=== PATIENT | female | born 1990 | race Caucasian/White ===

== ENCOUNTER 2019-10-24 21:35 | Emergency (ER) | payer SELFPAY ==
--- NOTE | ~2019-10-24 | XR_ITS ---
EXAMINATION: XR chest 2V DATE: 10/24/2019 22:11 INDICATION: Shortness of breath and mid chest tightness TECHNIQUE: frontal and lateral views of the chest were obtained. COMPARISON: Chest radiograph dated 10/10/1989 FINDINGS: The lungs remain clear with no focal airspace opacities, pulmonary edema, pleural effusion or pneumot horax. The cardiomediastinal silhouette is normal. Visualized bones and soft tissues are unremarkable . IMPRESSION: 1. No acute cardiopulmonary disease. Reviewed, dictated and finalized at location A. MOTIVE MANAGER
[2019-10-24 21:43] VITALS: BP 121/76; PULSE 108; RESP 18; TEMP 38.1; O2SAT 100
--- NOTE | 2019-10-24 21:53 | PC.NURSE ---
Pt ambulatory to restroom with a steady gait.
--- NOTE | 2019-10-24 21:55 | PC.NURSE ---
Patient C/O cough, fever, body aches, and chest tightness that started today. Pt reports her aunt was diagnosed with influenza A a few days ago and she has been around her all week.
--- NOTE | 2019-10-24 22:02 | ECG_ITS ---
Measurements Intervals [place] Rate: 114 P: 62 NM: 122 QRS: 51 QRSD: 87 T: 38 QT: 317 QTc: 438 Interpretive Statements SINUS TACHYCARDIA ABNORMAL ECG Electronically Signed On 10-25-2019 6:57:32 [employer] by Venkat Sams D.O.
--- NOTE | 2019-10-24 22:05 | ED.URI ---
HPI - URI/Sore Throat General Chief Complaint: Upper Respiratory Infection Stated Complaint: Body aches, cough Time Seen by Provider: 10/24/19 21:42 Source: patient Mode of arrival: ambulatory Limitations: no limitations History of Present Illness HPI Narrative: This is a 28 year old female that presents to the ER for cold symptoms since this morning. Reports myalgia, fever, cough, and sore throat. Reports tightness in her chest that is worse with coughing. Denies shortness of breath. Related Data Allergies Allergy/AdvReac Type Severity Reaction Status Date / Time Penicillins Allergy Unknown HIVES Verified 12/26/17 16:13 Review of Systems Review of Systems: Narrative: CONSTITUTIONAL: Reports fever, chills ENT: Reports rhinorrhea, congestion, sore throat. Denies otalgia. CARDIOVASCULAR: Reports chest pain. Denies palpitations RESPIRATORY: Reports cough. Denies dyspnea. MUSCULOSKELETAL: Reports myalgia. NEUROLOGIC: Reports headache All systems reviewed & are unremarkable except as noted in HPI and below PMFSH Past Medical History Medical History (Updated 10/24/19 @ 22:39 by Radha Shay PA-C) Healthy adult Social History Social History (Updated 10/24/19 @ 22:08 by Radha Shay PA-C) Smoking status: Current every day smoker Tobacco type: e-cigarettes Gender identity (if verbalized by the patient): Female Exam Narrative: Exam Narrative: GENERAL: Well-appearing, well-nourished, and in no acute distress. HEAD: Normocephalic, atraumatic. EYES: EOMI. ENT: Turbinates swollen and pale. Mucous membranes moist. Oropharynx with mild tonsillar hypertrophy, no exudate or other lesions. Bilateral TMs pearly bhatia non-bulging NECK: Supple. No adenopathy or masses. CHEST: Clear to auscultation. No respiratory distress. No wheezes rales or rhonchi. Tender palpation of mid chest wall anteriorly HEART: Regular rate and rhythm. No murmur heard. Normal peripheral pulses. EXTREMITIES: Normal range of motion. No edema. SKIN: Warm, dry, no rash. NEURO: No focal deficits. Alert and oriented x3. PSYCH: Normal mood and affect Course Vital Signs Vital signs: Vital Signs Temperature 100.6 F H 10/24/19 21:43 Pulse Rate 108 H 10/24/19 21:43 Respiratory Rate 18 10/24/19 21:43 Blood Pressure 121/76 10/24/19 21:43 Pulse Oximetry 100 10/24/19 21:43 Temperature 100.6 F H 10/24/19 21:43 Pulse Rate 108 H 10/24/19 21:43 Respiratory Rate 18 10/24/19 21:43 Blood Pressure 121/76 10/24/19 21:43 Pulse Oximetry 100 10/24/19 21:43 MDM - URI/Sore Throat MDM Narrative Medical decision making narrative: Patient presents the emergency department for cold symptoms since this morning. Reports fever, myalgias, cough and sore throat. Patient reports some chest pain that is reproducible with palpation. Influenza is negative. CBC with mild leukocytosis to 11.5. Metabolic panel without acute changes. Troponin is not elevated. EKG and chest x-ray without acute changes. Symptoms are suspicious for influenza, but patient is otherwise healthy and not so treatment is not indicated in her. Patient was instructed on [id number] symptomatic care. She is to follow-up with primary care doctor. She was given warnings to return to the ER Lab Data Attestation: I reviewed the patient's lab results. Result diagrams: 10/24/19 22:23 10/24/19 22:23 Labs: Lab Results 10/24/19 10/24/19 Range/Units 22:23 22:23 WBC 11.5 H (4.5-10.0) K/mm3 RBC 3.97 L (4.2-5.4) M/mm3 Hgb 12.4 (12.0-15.0) g/dL Hct 37.4 (37.0-47.0) % MCV 94.2 (80-100) fl MCH 31.2 (26-34) pg MCHC 33.2 (32-36) g/dl RDW 13.5 (11.5-14.5) % Plt Count 400 H (150-375) k/mm3 MPV 9.7 (7.4-10.4) fl Immature Gran % (Auto) 0.3 (0-0.5) % Neut % (Auto) 73.6 H (45.5-73.1) % Lymph % (Auto) 14.8 L (18.3-44.2) % [place] % (Auto) 9.9 H (2.6-8.5) % Eos % (Auto) 1.2 (0-4.4) % Baso
[2019-10-24] MEDS: KETOROLAC (*BKC) 60 MG/2 ML VIAL IM (22:22)
[2019-10-24 22:28] LABS: Basophils Percent Auto 0.2 % (0.2-1.2); Eosinophils Absolute Auto 0.1 K/mm3 (0-0.3); Eosinophils Percent Auto 1.2 % (0-4.4); Hematocrit 37.4 % (37.0-47.0); Hemoglobin 12.4 g/dL (12.0-15.0); Immature Granulocyte Absolute 0.03 K/mm3 (0.00-0.031); Immature Granulocyte Percent A 0.3 % (0-0.5); Lymphocytes Percent Auto 14.8 % (18.3-44.2); Mean Corpuscular HGB Conc 33.2 g/dl (32-36); Mean Corpuscular Hemoglobin 31.2 pg (26-34); Mean Corpuscular Volume 94.2 fl (80-100); Mean Platelet Volume 9.7 fl (7.4-10.4); Monocytes Absolute Auto 1.1 K/mm3 (0.1-0.6); Monocytes Percent Auto 9.9 % (2.6-8.5); Neutrophils Absolute Auto 8.4 K/mm3 (1.3-6.7); Neutrophils Percent Auto 73.6 % (45.5-73.1); Platelet Count Result 400 k/mm3 (150-375); Red Blood Count 3.97 M/mm3 (4.2-5.4); Red Cell Distribution Width 13.5 % (11.5-14.5); White Blood Count 11.5 K/mm3 (4.5-10.0)
[2019-10-24 22:40] LABS: Blood Urea Nitrogen 10 mg/dL (7-17); Calcium 9.5 mg/dL (8.4-10.2); Carbon Dioxide 27 mmol/L (22-30); Chloride 100 mmol/L (98-107); Estimated CRCL calculation 94 ml/min; Estimated Glomerular Filt Rate > 60; Glucose 98 mg/dL (65-105); Potassium 3.8 mmol/L (3.4-5.0); Sodium 138 mmol/L (137-145)
[2019-10-24 22:52] LABS: Troponin I < 0.012 ng/mL (0.000-0.034)
[2019-10-24 22:53] VITALS: BP 97/69; PULSE 103; RESP 16; TEMP 36.7; O2SAT 98
== END 2019-10-24 23:14 | disposition home or self-care (01) ==
PROVIDERS: Physician Assistant; Emergency Provider Emergency Medicine
DX: B34.9 Viral infection, unspecified (principal); R00.0 Tachycardia, unspecified; F17.290 Nicotine dependence, other tobacco product, uncomplicated
CPT/HCPCS: 36415; 71046; 80048; 84484; 85025; 87804; 93005; 96372; 99284; J1885

== ENCOUNTER 2019-11-27 17:23 | Emergency (ER) | payer OTHER, SELFPAY ==
[2019-11-27 17:27] VITALS: BP 110/72; PULSE 98; RESP 16; TEMP 36.8; O2SAT 100
--- NOTE | 2019-11-27 18:04 | ED.URI ---
HPI - URI/Sore Throat General Chief Complaint: Upper Respiratory Infection Stated Complaint: COUGH/STREP EXPOSURE Time Seen by Provider: 11/27/19 17:57 Source: patient and RN notes reviewed Mode of arrival: ambulatory Limitations: no limitations History of Present Illness HPI Narrative: Patient presents today complaining of sore throat, congestion, rhinorrhea, bilateral ear pain, and occasional cough. Symptoms began last night. Denies fever, nausea, vomiting, diarrhea. She currently rates her pain 1/10 at rest and has been taking Tylenol and NyQuil without relief. Reports child was diagnosed with strep throat today. MD elicited complaint: sore throat Related Data Allergies Allergy/AdvReac Type Severity Reaction Status Date / Time Penicillins Allergy Unknown Other Verified 11/27/19 17:33 Review of Systems Review of Systems: Narrative: CONSTITUTIONAL: Denies body aches, fever, chills, or sweats. EYES: Denies visual changes, redness, or discharge. ENT: + Sore throat, bilateral ear pain, congestion, rhinorrhea. CARDIOVASCULAR: Denies chest pain, palpitations, or edema. RESPIRATORY: Denies dyspnea.+ Occasional cough GASTROINTESTINAL: Denies abdominal pain, nausea, vomiting, or diarrhea. GENITOURINARY: Denies dysuria or hematuria. SKIN: Denies rash, itching, or wounds. MUSCULOSKELETAL: Denies back pain, joint pain, or myalgia. NEUROLOGIC: Denies headache, numbness, tingling, or weakness. PSYCH: Denies depression or anxiety. PMFSH Comments At time of signature, I have reviewed and agree with nursing past medical, surgical, social and family history unless otherwise noted. Please see nursing chart for further information. There is no relevant family history pertinent to the presenting complaint Patient denies that she smokes or vapes, but an e-cigarette is seen in her pocket during exam. Exam Narrative: Exam Narrative: GENERAL: Well-appearing, well-nourished, and in no acute distress. HEAD: Normocephalic, atraumatic. EYES: EOMI. No redness or drainage. Conjunctivae normal. ENT: Mucous membranes pink and moist. Nares clear. No rhinorrhea. TMs normal bilaterally. Throat erythematous. Tonsils 3+ with white exudate. Uvula midline. NECK: Normal AROM. Supple. No lymphadenopathy. CHEST: No respiratory distress. Clear to auscultation. HEART: Regular rate and rhythm. No murmur appreciated. Normal peripheral pulses. EXTREMITIES: Normal range of motion. No edema. SKIN: Warm, dry, no rash. NEURO: No focal deficits. Alert and oriented x3. Gait steady. PSYCH: Normal affect. No signs of depression or anxiety. Course Vital Signs Vital signs: Vital Signs Temperature 98.3 F 11/27/19 17:27 Pulse Rate 98 11/27/19 17:27 Respiratory Rate 16 11/27/19 17:27 Blood Pressure 110/72 11/27/19 17:27 Pulse Oximetry 100 11/27/19 17:27 Temperature 98.3 F 11/27/19 17:27 Pulse Rate 98 11/27/19 17:27 Respiratory Rate 16 11/27/19 17:27 Blood Pressure 110/72 11/27/19 17:27 Pulse Oximetry 100 11/27/19 17:27 Reviewed MDM - URI/Sore Throat Differential Diagnosis Differential diagnosis: Likely upper respiratory infection, otitis media, viral infection, bronchitis, pharyngitis and other (Tonsillitis, strep throat) Lab Data Attestation: I reviewed the patient's lab results. Labs: Strep Screen Positive Group A Strep *(Reference Range: Negative)* Critical Care Time Critical Care Time Critical Care Time: No Discharge Plan Discharge Clinical Impression: Strep throat Patient Disposition: Home, Self-Care Condition: Stable Instructions: Antibiotic Form, Strep Throat (DC) Additional Instructions: You have been diagnosed with strep throat. Please take the azithromycin as prescribed until gone. You will be contagious for 48 hours after starting the antibiotics. Take Tylenol, ibuprofen, or Aleve for pain. Take an [id number] cough medicine such as Robitussin or Sabina
== END 2019-11-27 18:15 | disposition home or self-care (01) ==
PROVIDERS: Emergency Provider Nurse Practitioner
DX: J02.0 Streptococcal pharyngitis (principal)
CPT/HCPCS: 87880; 99213; G0463

== ENCOUNTER 2020-02-25 17:25 | Emergency (ER) | payer OTHER, SELFPAY ==
[2020-02-25] VITALS (8 sets, daily range): BP systolic 97–114; BP diastolic 62–77; PULSE 76–98; RESP 15–18; TEMP 36.9; O2SAT 98–100
--- NOTE | 2020-02-25 17:54 | ECG_ITS ---
Measurements Intervals [place] Rate: 73 P: 62 MI: 132 QRS: 62 QRSD: 97 T: 55 QT: 362 QTc: 400 Interpretive Statements SINUS RHYTHM WITH SINUS ARRHYTHMIA POSSIBLE LEFT ATRIAL ENLARGEMENT INCOMPLETE RIGHT BUNDLE BRANCH BLOCK BORDERLINE ECG Electronically Signed On 02-26-2020 7:03:15 CDT by Venkat Sams D.O.
[2020-02-25 18:15] LABS: Basophils Percent Auto 0.2 % (0.2-1.2); Eosinophils Absolute Auto 0.2 K/mm3 (0-0.3); Eosinophils Percent Auto 1.8 % (0-4.4); Hematocrit 37.9 % (37.0-47.0); Immature Granulocyte Absolute 0.02 K/mm3 (0.00-0.031); Immature Granulocyte Percent A 0.2 % (0-0.5); Lymphocytes Absolute Auto 3.13 K/mm3 (0.9-3.2); Lymphocytes Percent Auto 28.8 % (18.3-44.2); Mean Corpuscular HGB Conc 34.3 g/dl (32-36); Mean Corpuscular Hemoglobin 31.6 pg (26-34); Monocytes Absolute Auto 0.9 K/mm3 (0.1-0.6); Monocytes Percent Auto 7.9 % (2.6-8.5); Neutrophils Absolute Auto 6.6 K/mm3 (1.3-6.7); Neutrophils Percent Auto 61.1 % (45.5-73.1); Platelet Count Result 325 k/mm3 (150-375); Red Blood Count 4.12 M/mm3 (4.2-5.4); White Blood Count 10.9 K/mm3 (4.5-10.0)
[2020-02-25 18:18] LABS: Add Urine Microscopic? YES; Appearance Urine Clear (Clear); Bacteria Urine Trace /hpf; Bilirubin Urine Negative (Negative); Blood Urine Negative (Negative); Color Urine Straw (Yellow); Glucose Urine UA Negative (Negative); Ketones Urine Negative (Negative); Leukocyte Esterase Ur Trace LEU/UL (Negative); Mucus Urine Rare /lpf; Nitrate Urine Negative (Negative); Protein Urine Negative (Negative); RBC Urine 0-2 /hpf (0-2); Specific Grav Ur 1.011 (1.001-1.035); Squamous Epithelial Cell Urine Moderate /hpf (Few); Urobilinogen Urine Negative mg/dL (<2.0); WBC Urine 0-3 /hpf
[2020-02-25] MEDS: SODIUM CHLORIDE 0.9% IV 1,000 ML 999 ML IV CONT (18:26)
[2020-02-25] MEDS: FAMOTIDINE 20 MG/2 ML VIAL IV PUSH (18:27)
[2020-02-25 18:28] LABS: Blood Urea Nitrogen 12 mg/dL (7-17); Calcium 9.4 mg/dL (8.4-10.2); Carbon Dioxide 27 mmol/L (22-30); Chloride 103 mmol/L (98-107); Estimated CRCL calculation 81 ml/min; Estimated Glomerular Filt Rate > 60; Glucose 104 mg/dL (65-105); Potassium 3.6 mmol/L (3.4-5.0); Sodium 137 mmol/L (137-145)
--- NOTE | 2020-02-25 18:35 | ED.GENADULT ---
HPI - General Adult General Chief complaint: Syncope Stated complaint: LIGHT HEADED, 2 SYNCOPE EPISODES THIS WEEKEND Time Seen by Provider: 02/25/20 18:00 Source: patient Mode of arrival: ambulatory Limitations: no limitations History of Present Illness HPI narrative: Patient is a 29-year-old female who presents to emergency department for evaluation of 2 syncopal episodes that were brief and self-limited noting that she had one on Tuesday after paddling on a [place] for an hour and then again yesterday when she had been again out in the heat and then came inside and cool down and again had a brief syncopal episode patient denies any injury or traumas related to the syncope patient denies similar occurrence in the past patient on arrival to emergency department in the room in no distress denying any pain patient has not been seen for this complaint patient denies recent illness sick contacts Related Data Allergies Allergy/AdvReac Type Severity Reaction Status Date / Time Penicillins Allergy Unknown Other Verified 02/25/20 17:47 Review of Systems Review of Systems: All systems reviewed & are unremarkable except as noted in HPI and below PMFSH Past Medical History Medical History Healthy adult Social History Social History Smoking status: Current every day smoker Tobacco type: e-cigarettes/vaping Gender identity (if verbalized by the patient): Female Exam Narrative: Exam Narrative: GENERAL: Well-appearing, well-nourished, and in no acute distress. HEAD: Normocephalic, atraumatic. EYES: PERRLA and EOMI. ENT: Nares clear, no rhinorrhea or epistaxis. Mucous membranes moist. Oropharynx without tonsillar hypertrophy exudate or other lesions. NECK: Supple. No adenopathy or masses. CHEST: Clear to auscultation. No respiratory distress. No wheezes rales or rhonchi HEART: Regular rate and rhythm. No murmur heard. Normal peripheral pulses. ABDOMEN: Soft, nontender, nondistended EXTREMITIES: Normal range of motion. No edema. SKIN: Warm, dry, no rash. NEURO: No focal deficits. Alert and oriented x3. Cranial nerves II through XII grossly intact PSYCH: Normal mood and affect. Course Course Emergency Course: Patient in the room at this time in no distress aware of case findings treatment plan and diagnosis agreeing to follow-up as directed or to return if symptoms worsen or concerns Vital Signs Vital signs: Vital Signs Temperature 98.5 F 02/25/20 17:45 Pulse Rate 86 02/25/20 17:45 Respiratory Rate 16 02/25/20 17:45 Blood Pressure 106/66 02/25/20 17:45 Pulse Oximetry 100 02/25/20 17:45 Temperature 98.5 F 02/25/20 17:45 Pulse Rate 76 02/25/20 18:50 Respiratory Rate 18 02/25/20 18:50 Blood Pressure 97/65 L 02/25/20 18:50 Pulse Oximetry 98 02/25/20 18:50 Medical Decision Making MDM Narrative Medical decision making narrative: Patients EKGs and labs are without significant high risk changes. Cardiac risk factors were reviewed. Patient is felt likely to be low risk for ACS and reasonable for further risk stratification testing as an outpatient. A low-risk Wells criteria is noted. PE is felt to be unlikely. No pneumonia or URI symptoms were seen on evaluation today. Patient is felt to be resonable for continued evaluation as an outpatient. Vital Signs Vital Signs: Vital Signs Temperature 98.5 F 02/25/20 17:45 Pulse Rate 86 02/25/20 17:45 Respiratory Rate 16 02/25/20 17:45 Blood Pressure 106/66 02/25/20 17:45 Pulse Oximetry 100 02/25/20 17:45 Temperature 98.5 F 02/25/20 17:45 Pulse Rate 76 02/25/20 18:50 Respiratory Rate 18 02/25/20 18:50 Blood Pressure 97/65 L 02/25/20 18:50 Pulse Oximetry 98 02/25/20 18:50 Lab Data Result diagrams: 02/25/20 18:05 02/25/20 18:05 Labs: Lab Results 02/25/20 02/25/20
== END 2020-02-25 20:13 | disposition home or self-care (01) ==
PROVIDERS: Emergency Medicine Emergency Medical Services; Emergency Provider Emergency Medicine
DX: R55 Syncope and collapse (principal); F17.290 Nicotine dependence, other tobacco product, uncomplicated; I45.10 Unspecified right bundle-branch block; R94.31 Abnormal electrocardiogram [ECG] [EKG]
CPT/HCPCS: 36415; 80048; 81001; 81025; 85025; 93005; 96361; 96374; 99284; J7030

== ENCOUNTER 2020-04-15 16:54 | Emergency (ER) | payer OTHER, SELFPAY ==
--- NOTE | 2020-04-15 17:01 | ED.GENADULT ---
HPI - General Adult General Chief complaint: Upper Respiratory Infection Stated complaint: sore throat Source: patient and RN notes reviewed Mode of arrival: ambulatory Limitations: no limitations History of Present Illness HPI narrative: This is a 29 years old female presents to the office for an evaluation of sore throat for two days. Associated with runny nose and dental pain. She states that one of her filling came off last night and she has been having pain. She does not have a dentist. Denies sick contact. Related Data Home Medications Medication Instructions Recorded Confirmed cetirizine 10 mg tablet 10 mg PO DAILY 03/05/20 04/15/20 Allergies Allergy/AdvReac Type Severity Reaction Status Date / Time Penicillins Allergy Unknown Other Verified 02/25/20 17:47 Review of Systems Review of Systems: Narrative: CONSTITUTIONAL: Denies fever, chills ENT: Denies rhinorrhea, congestion, otalgia. Reports dental pain and sore throat CARDIOVASCULAR: Denies chest pain, palpitation RESPIRATORY: Denies dyspnea, cough GASTROINTESTINAL: Denies abdominal pain, nausea, vomiting SKIN: Denies rash MUSCULOSKELETAL: Denies acute joints pain NEUROLOGIC: Denies lightheaded All other systems reviewed are negative, except as documented in HPI. [facility] Past Medical History Medical History BMI 23.0-23.9, adult Chronic headaches Engages in nicotine containing substance vaping Healthy adult Hx of migraine headaches Seasonal allergies Syncope due to orthostatic hypotension Wellness examination Social History Social History Smoking status: Current every day smoker Tobacco type: e-cigarettes/vaping Alcohol intake: never Substance use: never Gender identity (if verbalized by the patient): Female Comments At time of signature, I agree with nursing past medical, surgical, social and family history. There is no relevant family history pertinent to the presenting complaint. Exam Narrative: Exam Narrative: GENERAL: This is a well-nourished, well-developed patient, in no apparent distress. EARS: External ears normal, auditory canals clear and without drainage, TMs normal without perforation. Hearing grossly intact. NOSE: External nose normal with no obvious nasal discharge, nares without redness, no rhinorrhea. THROAT: Mucous membranes moist, posterior pharynx clear. Affected tooth appears carious with chipped tooth and gum around is tender to palpation with slight erythema. NECK: Neck supple, non-tender without lymphadenopathy, masses or thyromegaly. CARDIOVASCULAR: Regular rate and rhythm without murmurs, gallops, or rubs. RESPIRATORY: Clear to auscultation. Breath sounds equal bilaterally. No wheezes, rales, or rhonchi. GASTROINTESTINAL: Abdomen soft, non-tender, nondistended. Bowel sounds are active. No guarding. SKIN: warm, intact with no suspicious lesions or rash, good texture and turgor. NEURO: awake, alert, and oriented to person, place and time. There were no obvious focal neurologic abnormalities. Steady gait Hi Coma Scale Eye Opening: Spontaneous 4 Hi Coma Scale Motor: Obeys Commands 6 Hi Coma Scale Verbal: Oriented 5 Course Vital Signs Vital signs: Vital Signs Temperature 98.2 F 04/15/20 17:03 Pulse Rate 85 04/15/20 17:03 Respiratory Rate 04/15/20 17:03 Blood Pressure 119/79 04/15/20 17:03 Pulse Oximetry 100 04/15/20 17:03 Temperature 98.2 F 04/15/20 17:03 Pulse Rate 85 04/15/20 17:03 Respiratory Rate 04/15/20 17:03 Blood Pressure 119/79 04/15/20 17:03 Pulse Oximetry 100 04/15/20 17:03 Medical Decision Making MDM Narrative Medical decision making narrative: Discharge instructions reviewed with patient, as well as provided in writing per nursing staff. The instructions also include specific and strict return/GO TO THE ER as well as f/u info
[2020-04-15 17:03] VITALS: BP 119/79; PULSE 85; RESP 20; TEMP 36.8; O2SAT 100
== END 2020-04-15 17:23 | disposition home or self-care (01) ==
PROVIDERS: Emergency Provider Nurse Practitioner; PCP Physician Assistant
DX: J02.9 Acute pharyngitis, unspecified (principal); K08.89 Other specified disorders of teeth and supporting structures; F17.200 Nicotine dependence, unspecified, uncomplicated
CPT/HCPCS: 87081; 87880; 99213; G0463

== ENCOUNTER 2020-05-10 13:49 | Emergency (ER) | payer OTHER, SELFPAY ==
--- NOTE | ~2020-05-10 | XR_ITS ---
EXAMINATION: XR chest 2V DATE: 05/10/2020 14:39 INDICATION: Lifting injury and back pain near the right scapula TECHNIQUE: PA and lateral views of the chest are obtained. COMPARISON: 10/24/2019 FINDINGS: The lungs are free of acute opacities. There is no pleural effusion or pneumothorax. The ca rdiomediastinal silhouette is normal. The visualized bones and soft tissues are unremarkable. IMPRESSION: 1. No acute cardiopulmonary abnormality. Reviewed, dictated and finalized at location A.
[2020-05-10 13:51] VITALS: BP 117/74; PULSE 87; RESP 18; TEMP 36.9; O2SAT 100
--- NOTE | 2020-05-10 14:48 | ED.BACK ---
HPI - Back Pain/Injury General Chief Complaint: Back Pain/Injury Stated Complaint: right-mid back pain Time Seen by Provider: 05/10/20 13:54 Source: patient Mode of arrival: ambulatory Limitations: no limitations History of Present Illness HPI Narrative: Patient is a 29-year-old female who presents to emergency department for evaluation of right thoracic back pain began yesterday after lifting a child is a sharp aching pain worse with deep breathing patient denies similar occurrence presents in no distress denies URI symptoms Related Data Allergies Allergy/AdvReac Type Severity Reaction Status Date / Time Penicillins Allergy Unknown Other Verified 05/10/20 13:53 Review of Systems Review of Systems: All systems reviewed & are unremarkable except as noted in HPI and below PMFSH Past Medical History Medical History BMI 23.0-23.9, adult Chronic headaches Engages in nicotine containing substance vaping Healthy adult Hx of migraine headaches Seasonal allergies Syncope due to orthostatic hypotension Wellness examination Social History Social History Smoking status: Current every day smoker Tobacco type: e-cigarettes/vaping Alcohol intake: never Substance use: never Gender identity (if verbalized by the patient): Female Exam Narrative: Exam Narrative: GENERAL: Well-appearing, well-nourished, and in no acute distress. HEAD: Normocephalic, atraumatic. EYES: PERRLA and EOMI. ENT: Nares clear, no rhinorrhea or epistaxis. Mucous membranes moist. CHEST: Clear to auscultation. No respiratory distress. No wheezes rales or rhonchi HEART: Regular rate and rhythm. No murmur heard. EXTREMITIES: Normal range of motion. No edema. Right paraspinal thoracic tenderness no deformities SKIN: Warm, dry, no rash. NEURO: No focal deficits. Alert and oriented x3. Neurovascularly intact. Capillary refill less than 2 seconds PSYCH: Normal mood and affect. Course Course Emergency Course: Patient in the room aware of case findings treatment plan and diagnosis agreeing to follow-up as directed or to return if symptoms worsen or concerns Vital Signs Vital signs: Vital Signs Temperature 98.4 F 05/10/20 13:51 Pulse Rate 87 05/10/20 13:51 Respiratory Rate 18 05/10/20 13:51 Blood Pressure 117/74 05/10/20 13:51 Pulse Oximetry 100 05/10/20 13:51 Temperature 98.4 F 05/10/20 13:51 Pulse Rate 87 05/10/20 13:51 Respiratory Rate 18 05/10/20 13:51 Blood Pressure 117/74 05/10/20 13:51 Pulse Oximetry 100 05/10/20 13:51 MDM - Back Pain/Injury MDM Narrative Medical decision making narrative: Patients injury or pain is consistent with musculoskeletal etiology. No signs of neurological or vascular compromise on exam. Compartments and tisues are soft without signs of compartment syndrome. Pain is felt appropriate for further evaluation on an outpatient basis. Discharge Plan Discharge Clinical Impression: Acute thoracic myofascial strain Patient Disposition: Home, Self-Care Condition: Stable Instructions: Antibiotic Form, Thoracic Back Strain (ED) Additional Instructions: Follow up with your primary care provider within 5-7 days. Go to ER for shortness of breath, difficulty breathing, chest pain, fever/chills, weakness, nauseau/vomitting, etc. or any other concerns. Take any prescribed medications as directed. If you do not have a drug allergy to tylenol or motrin and can tolerate it then take tylenol or motrin as needed for discomfort/pain. Prescriptions: New cyclobenzaprine 10 mg tablet 10 mg PO TID PRN (Reason: muscle spasm) Qty: 14 RF: 0 ibuprofen [IBU] 600 mg tablet 600 mg PO QID PRN (Reason: fever or pain) Qty: 10 RF: 0 Follow-up/Referrals: Tunde Plunkett, PAIvelisseC [Primary Care Provider] - Stand Alone Forms: Work/School Release IP
[2020-05-10] MEDS: KETOROLAC (*BKC) 60 MG/2 ML VIAL IM (14:49)
== END 2020-05-10 15:05 | disposition home or self-care (01) ==
PROVIDERS: Emergency Provider Family Medicine; PCP Physician Assistant
DX: S29.012A Strain of muscle and tendon of back wall of thorax, initial encounter (principal); F17.290 Nicotine dependence, other tobacco product, uncomplicated; X50.0XXA Overexertion from strenuous movement or load, initial encounter
CPT/HCPCS: 71046; 96372; 99283; J1885

== ENCOUNTER 2020-06-11 15:11 | Emergency (ER) | payer OTHER, SELFPAY ==
[2020-06-11 15:15] VITALS: BP 125/73; PULSE 97; RESP 16; TEMP 36.8; O2SAT 100
--- NOTE | 2020-06-11 15:16 | ED.URI ---
HPI - URI/Sore Throat General Chief Complaint: Upper Respiratory Infection Stated Complaint: COUGH/WEAKNESS Source: patient and RN notes reviewed Limitations: no limitations History of Present Illness HPI Narrative: The patient, nondrinker/ vaper with frequent visits, presents with cough. Patient states she has a friend with bronchitis and now has a couple day history of cough and scratchy dry throat. No fever measured, wheezing/sneezing, earache, CP, loss of taste/smell, rash, vomiting/diarrhea, S OB, sputum changes. Symptoms are mild and she requests refill of inhaler. The patient agrees, in light of health emergency- in my medical judgement, only a personal chat was preferable to fully undress & examine the patient exhibiting potential COVID symptoms, in order to limit risk of infection. Related Data Allergies Allergy/AdvReac Type Severity Reaction Status Date / Time Penicillins Allergy Unknown Other Verified 05/10/20 13:53 Review of Systems Review of Systems: Narrative: General/Constitutional: No weight loss,fever Eyes: N0: Redness,discharge Ears/Nose/Throat: No: Epistaxis,ear discharge Respiratory: Denies: Hemoptysis Gastrointestinal: No Vomiting, Bleeding-rectal Skin: No Lumps, eruption Neurologic: No Focal Weakness,Sz Hematologic: Denies: Petechiae/Purpura Psychiatric: No: Suicida ideationl All Other Systems: Reviewed and Negative PMFSH Social History Social History Smoking status: Current every day smoker Tobacco type: e-cigarettes/vaping Alcohol intake: never Substance use: never Gender identity (if verbalized by the patient): Female Comments At time of signature, agree with nursing past medical, surgical, social and family history. There is no relevant family history pertinent to the presenting complaint Exam Narrative: Exam Narrative: General Appearance: Well appearing, Well nourished EYE: PERRLA, Conjunctiva clear Ears: Auditory canal normal, Nose: Rhinorrhea, Mucousal erythema Mouth/Throat: MM moist, Uvula midline, Pharyngeal erythema Neck: Supple, No adenopathy Respiratory: No respiratory distress, airway patent Musculoskeletal: Non tender, Normal strength Skin: Warm, Dry Neurological: A&O x3, CN II-XII intact Psychiatric: Normal mood, Normal affect Course Vital Signs Vital signs: Vital Signs Temperature 98.3 F 06/11/20 15:15 Pulse Rate 97 06/11/20 15:15 Respiratory Rate 16 06/11/20 15:15 Blood Pressure 125/73 06/11/20 15:15 Pulse Oximetry 100 06/11/20 15:15 Temperature 98.3 F 06/11/20 15:15 Pulse Rate 97 06/11/20 15:15 Respiratory Rate 16 06/11/20 15:15 Blood Pressure 125/73 06/11/20 15:15 Pulse Oximetry 100 06/11/20 15:15 Discharge Plan Discharge Clinical Impression: Acute tracheobronchitis Patient Disposition: Home, Self-Care Condition: Stable Instructions: Antibiotic Form Prescriptions: New azithromycin 250 mg tablet See Rx Instructions .ROUTE .COMPLEX Qty: 6 RF: 0 codeine-guaifenesin 10-100 mg/5 mL liquid 7.5 ml PO Q6H PRN (Reason: cough) Qty: 118 RF: 0 benzonatate [Tessalon Perles] 100 mg capsule 100 mg PO TID Qty: 20 RF: 1 albuterol sulfate [Ventolin HFA] 90 mcg/actuation HFA aerosol inhaler 2 puff INHALATION QID PRN (Reason: shortness of breath or wheezing) Qty: 8.5 RF: 1 Follow-up/Referrals: Tunde Plunkett PA-C [Primary Care Provider] - Discharge Date/Time: 06/11/20 15:49
== END 2020-06-11 15:49 | disposition home or self-care (01) ==
PROVIDERS: Emergency Provider Emergency Medicine; PCP Physician Assistant
DX: J20.9 Acute bronchitis, unspecified (principal); F17.200 Nicotine dependence, unspecified, uncomplicated
CPT/HCPCS: 99213; G0463

== ENCOUNTER 2020-09-05 14:39 | Emergency (ER) | payer OTHER, SELFPAY ==
[2020-09-05 14:44] VITALS: BP 111/61; PULSE 72; RESP 16; TEMP 36.3; O2SAT 100
--- NOTE | 2020-09-05 14:47 | ED.URI ---
HPI - URI/Sore Throat General Chief Complaint: Upper Respiratory Infection Stated Complaint: sore throat Source: patient and RN notes reviewed Limitations: no limitations History of Present Illness HPI Narrative: The patient nondrinker/non-smoker/occasional vapor, presents with sore throat. Patient states she has shorter, 1 day history of scratchy sore throat with mild ear fullness. No fever, cough, loss of taste/smell, vomiting/diarrhea, CP, wheezing/sneezing, S OB. Symptoms are mild, worse upon eating Related Data Home Medications Medication Instructions Recorded Confirmed levonorgestrel 20 mcg/24 hours (6 1 device INTRAUTERINE ONCE 07/22/20 08/12/20 yrs) 52 mg intrauterine device Allergies Allergy/AdvReac Type Severity Reaction Status Date / Time Penicillins Allergy Unknown Other Verified 08/12/20 10:03 Review of Systems Review of Systems: Narrative: General/Constitutional: No weight loss,fever Eyes: N0: Redness,discharge Ears/Nose/Throat: No: Epistaxis,ear discharge Respiratory: Denies: Hemoptysis Gastrointestinal: No Vomiting, Bleeding-rectal Skin: No Lumps, eruption Neurologic: No Focal Weakness,Sz Hematologic: Denies: Petechiae/Purpura Psychiatric: No: Suicida ideationl All Other Systems: Reviewed and Negative PMFSH Past Medical History Medical History BMI 23.0-23.9, adult Chronic headaches Engages in nicotine containing substance vaping Healthy adult Hx of migraine headaches Seasonal allergies Syncope due to orthostatic hypotension Vaginal delivery x 2 Wellness examination Social History Social History Smoking status: Current every day smoker Tobacco type: e-cigarettes/vaping Alcohol intake: never Substance use: never Gender identity (if verbalized by the patient): Female Comments At time of signature, agree with nursing past medical, surgical, social and family history. There is no relevant family history pertinent to the presenting complaint Exam Narrative: Exam Narrative: General Appearance: Well appearing, Well nourished EYE: PERRLA, Conjunctiva clear Ears: Auditory canal normal, TM normal Nose: Rhinorrhea, Mucousal erythema Mouth/Throat: MM moist, Uvula midline, Pharyngeal erythema no exudate Neck: Supple, No adenopathy Respiratory: No respiratory distress, Breath sounds equal, Clear to auscultation Cardiovascular: RRR, No JVD Musculoskeletal: Non tender, Normal strength Skin: Warm, Dry Neurological: A&O x3, CN II-XII intact Psychiatric: Normal mood, Normal affect Course Vital Signs Vital signs: Vital Signs Temperature 97.4 F L 09/05/20 14:44 Pulse Rate 72 09/05/20 14:44 Respiratory Rate 16 09/05/20 14:44 Blood Pressure 111/61 09/05/20 14:44 Pulse Oximetry 100 09/05/20 14:44 Temperature 97.4 F L 09/05/20 14:44 Pulse Rate 72 09/05/20 14:44 Respiratory Rate 16 09/05/20 14:44 Blood Pressure 111/61 09/05/20 14:44 Pulse Oximetry 100 09/05/20 14:44 Discharge Plan Discharge Clinical Impression: Pharyngitis, acute Qualifiers: Pharyngitis/tonsillitis etiology: unspecified etiology Qualified Code(s): J02.9 - Acute pharyngitis, unspecified Patient Disposition: Home, Self-Care Condition: Stable Instructions: Antibiotic Form, Pharyngitis (ED) Prescriptions: New azithromycin 250 mg tablet See Rx Instructions .ROUTE .COMPLEX Qty: 6 RF: 0 Lidocaine Viscous 2 % solution 5 ml MUCOUS MEM QID PRN (Reason: pain) Qty: 100 RF: 0 fluconazole 150 mg tablet 150 mg PO WEEKLY Qty: 2 RF: 1 No Action Mirena 20 mcg/24 hours (6 yrs) 52 mg intrauterine device 1 device intrauterine ONCE RF: 0 sumatriptan succinate 50 mg tablet See Rx Instructions PO .COMPLEX PRN (Reason: migraine headache) Qty: 14 RF: 3 Follow-up/Referrals: UNKNOWN,DOCTOR [Primary Care Provider] -
== END 2020-09-05 15:08 | disposition home or self-care (01) ==
PROVIDERS: Emergency Provider Emergency Medicine
DX: J02.9 Acute pharyngitis, unspecified (principal); Z20.828 Contact with and (suspected) exposure to other viral communicable diseases; F17.200 Nicotine dependence, unspecified, uncomplicated
CPT/HCPCS: 99213; G0463

== ENCOUNTER 2020-09-06 06:51 | Outpatient (NON) | payer OTHER, SELFPAY ==
[2020-09-07 01:25] LABS: SARS-CoV-2 RNA PCR Negative
== END 2020-09-06 06:52 ==
LOC: ANHCOVIDDT 06:51
PROVIDERS: Visit Provider Emergency Medicine
DX: J02.9 Acute pharyngitis, unspecified (principal); Z20.828 Contact with and (suspected) exposure to other viral communicable diseases
CPT/HCPCS: 87635; C9803; U0003

== ENCOUNTER 2020-11-21 17:42 | Emergency (ER) | payer OTHER, SELFPAY ==
--- NOTE | ~2020-11-21 | XR_ITS ---
EXAMINATION: XR chest 1V INDICATION: Chest pain, shortness of breath TECHNIQUE: PA view of the chest is obtained. COMPARISON: 05/10/2020 FINDINGS: The lungs are free of acute opacities. There is no pleural effusion or pneumothorax. The ca rdiomediastinal silhouette is normal. The visualized bones and soft tissues are unremarkable. IMPRESSION: 1. No acute cardiopulmonary abnormality. Reviewed, dictated and finalized at location A. AT[facility] CHIEF
--- NOTE | 2020-11-21 17:58 | ECG_ITS ---
Measurements Intervals [place] Rate: 61 P: 67 [place]: 122 QRS: 69 QRSD: 97 T: 48 QT: 386 QTc: 391 Interpretive Statements SINUS RHYTHM WITH SINUS ARRHYTHMIA NORMAL ECG Electronically Signed On 11-22-2020 7:28:12 TIPPLE REPAIRER by Venkat Sams D.O.
[2020-11-21 17:59] VITALS: BP 107/67; PULSE 74; RESP 14; TEMP 36.8; O2SAT 100
[2020-11-21 18:14] LABS: Basophils Percent Auto 0.3 % (0.2-1.2); Eosinophils Absolute Auto 0.1 K/mm3 (0-0.3); Eosinophils Percent Auto 0.9 % (0-4.4); Hematocrit 35.8 % (37.0-47.0); Hemoglobin 12.1 g/dL (12.0-15.0); Immature Granulocyte Absolute 0.03 K/mm3 (0.00-0.031); Immature Granulocyte Percent A 0.3 % (0-0.5); Lymphocytes Absolute Auto 2.71 K/mm3 (0.9-3.2); Lymphocytes Percent Auto 30.6 % (18.3-44.2); Mean Corpuscular HGB Conc 33.8 g/dl (32-36); Mean Corpuscular Hemoglobin 31.5 pg (26-34); Mean Corpuscular Volume 93.2 fl (80-100); Monocytes Absolute Auto 0.4 K/mm3 (0.1-0.6); Monocytes Percent Auto 4.8 % (2.6-8.5); Neutrophils Absolute Auto 5.6 K/mm3 (1.3-6.7); Neutrophils Percent Auto 63.1 % (45.5-73.1); Platelet Count Result 301 k/mm3 (150-375); Red Blood Count 3.84 M/mm3 (4.2-5.4); Red Cell Distribution Width 11.9 % (11.5-14.5); White Blood Count 8.9 K/mm3 (4.5-10.0)
[2020-11-21 18:25] LABS: Anion Gap 9 mmol/L (8-16); Blood Urea Nitrogen 6 mg/dL (7-17); Calcium 9.1 mg/dL (8.4-10.2); Carbon Dioxide 24 mmol/L (22-30); Chloride 107 mmol/L (98-107); Estimated CRCL calculation 92 ml/min; Estimated Glomerular Filt Rate > 60; Glucose 97 mg/dL (65-105); Potassium 3.6 mmol/L (3.4-5.0); Sodium 140 mmol/L (137-145)
[2020-11-21 18:37] LABS: Troponin I < 0.012 ng/mL (0.000-0.034)
[2020-11-21] MEDS: SODIUM CHLORIDE 0.9% IV 1,000 ML 999 ML IV CONT (20:10)
[2020-11-21] MEDS: KETOROLAC 30 MG/ML VIAL (*BKC) (20:10)
--- NOTE | 2020-11-21 21:04 | ED.GENADULT ---
HPI - General Adult General Chief complaint: Shortness of Breath/Dyspnea Stated complaint: sore throat, sob Time Seen by Provider: 11/21/20 19:57 History of Present Illness HPI narrative: Patient is a 30-year-old female who presents ER with central chest pain. Ongoing since this afternoon. Aching in nature. Worse with laying down flat. Associated with belching. No fevers but does feel chilled and fatigued. She has been having body aches. She also has been reporting sinus congestion without a sore throat or productive cough. No alleviating factors. Related Data Home Medications Medication Instructions Recorded Confirmed levonorgestrel 20 mcg/24 hours (6 1 device INTRAUTERINE ONCE 07/22/20 08/12/20 yrs) 52 mg intrauterine device Allergies Allergy/AdvReac Type Severity Reaction Status Date / Time Penicillins Allergy Unknown Other Verified 08/12/20 10:03 Review of Systems Review of Systems: All systems reviewed & are unremarkable except as noted in HPI and below Constitutional: Constitutional: Reports chills, Denies fever(s) and Denies weakness ENT: Reports nasal congestion and Denies sore throat Cardiovascular: Cardiovascular: Reports chest pain, Denies rapid heart rate and Denies radiating jaw, neck or arm pain Respiratory: Respiratory: Reports cough, Denies dyspnea and Denies wheezing Gastrointestinal: Gastrointestinal: Denies abdominal pain, Denies diarrhea, Denies nausea and Denies vomiting Musculoskeletal: Musculoskeletal: Denies back pain, Reports myalgias and Denies muscle cramps PMFSH Past Medical History Medical History BMI 23.0-23.9, adult Chronic headaches Engages in nicotine containing substance vaping Healthy adult Hx of migraine headaches Seasonal allergies Syncope due to orthostatic hypotension Vaginal delivery x 2 Wellness examination Social History Social History Smoking status: Current every day smoker Tobacco type: e-cigarettes/vaping Alcohol intake: never Substance use: never Gender identity (if verbalized by the patient): Female Exam Narrative: Exam Narrative: GENERAL: Well-appearing, well-nourished, and in no acute distress. HEAD: Normocephalic, atraumatic. ENT: Mucous membranes moist. CHEST: Clear to auscultation. No respiratory distress. HEART: Regular rate and rhythm. No murmur/rubs heard. Normal peripheral pulses. ABDOMEN: Soft, nontender, nondistended. EXTREMITIES: Normal range of motion. No edema. NEURO: Alert and oriented x3. PSYCH: Normal mood and affect. Course Course Emergency Course: Patient informed of results. Normal EKG and labs. Chest x-ray unremarkable. Will swab for Covid. Patient will stay in isolation. Also recommend reflux medication since patient has had some belching to go along with her symptoms. Vital Signs Vital signs: Vital Signs Temperature 98.2 F 11/21/20 17:59 Pulse Rate 74 11/21/20 17:59 Respiratory Rate 14 11/21/20 17:59 Blood Pressure 107/67 11/21/20 17:59 Pulse Oximetry 100 11/21/20 17:59 Temperature 98.2 F 11/21/20 17:59 Pulse Rate 74 11/21/20 17:59 Respiratory Rate 14 11/21/20 17:59 Blood Pressure 107/67 11/21/20 17:59 Pulse Oximetry 100 11/21/20 17:59 Medical Decision Making Vital Signs Vital Signs: Vital Signs Temperature 98.2 F 11/21/20 17:59 Pulse Rate 74 11/21/20 17:59 Respiratory Rate 14 11/21/20 17:59 Blood Pressure 107/67 11/21/20 17:59 Pulse Oximetry 100 11/21/20 17:59 Temperature 98.2 F 11/21/20 17:59 Pulse Rate 74 11/21/20 17:59 Respiratory Rate 14 11/21/20 17:59 Blood Pressure 107/67 11/21/20 17:59 Pulse Oximetry 100 11/21/20 17:59 Lab Data Result diagrams: 11/21/20 18:08 11/21/20 18:08 Labs: Lab Results 11/21/20 11/21/20 Range/Units 18:08 18:08 WBC 8.9 (4.5-1
[2020-11-21 23:47] VITALS: BP 111/64; PULSE 76; RESP 16; TEMP 36.8; O2SAT 98
[2020-11-22 19:47] LABS: SARS-CoV-2 RNA PCR Negative
== END 2020-11-21 22:35 | disposition home or self-care (01) ==
PROVIDERS: Emergency Medicine; Emergency Provider Emergency Medicine
DX: B34.9 Viral infection, unspecified (principal); R07.9 Chest pain, unspecified; Z20.822 Contact with and (suspected) exposure to COVID-19; F17.290 Nicotine dependence, other tobacco product, uncomplicated
CPT/HCPCS: 36415; 71045; 80048; 84484; 85025; 87081; 87804; 87880; 93005; 96361; 96374; 99284; C9803; J1885; J7030; U0003; U0005

== ENCOUNTER 2021-01-18 07:59 | Emergency (ER) | payer OTHER, SELFPAY ==
[2021-01-18 08:06] VITALS: BP 111/79; PULSE 112; RESP 20; TEMP 36.5; O2SAT 100
--- NOTE | 2021-01-18 08:16 | PC.NURSE ---
pt states unable to urinate at this time
--- NOTE | 2021-01-18 08:25 | ECG_ITS ---
Measurements Intervals [place] Rate: 101 P: 70 CT: 134 QRS: 41 QRSD: 97 T: 43 QT: 337 QTc: 438 Interpretive Statements SINUS TACHYCARDIA POSSIBLE LEFT ATRIAL ENLARGEMENT INCOMPLETE RIGHT BUNDLE BRANCH BLOCK BORDERLINE ECG Electronically Signed On 01-18-2021 9:15:42 CDT by Venkat Sams D.O.
--- NOTE | 2021-01-18 08:25 | PC.NURSE ---
Pt tells Dr. Frank that she's experiencing palpitations, which possibly may be from anxiety. Labs and ekg ordered.
--- NOTE | 2021-01-18 08:26 | ED.GENADULT ---
HPI - General Adult General Chief complaint: Urogenital-Female Stated complaint: DIFFICULTY URINATING Time Seen by Provider: 01/18/21 08:21 Source: patient History of Present Illness HPI narrative: Patient is a 30 y/o female complaining of difficulty with urination since yesterday. There is no known alleviating or exacerbating factor. She states that she has to really push to urinate, but she is able to urinate. She has no fever, chills or vomiting. She has chronic back pain unchanged from baseline. She also has intermittent fast heart rate. Related Data Allergies Allergy/AdvReac Type Severity Reaction Status Date / Time Penicillins Allergy Unknown Other Verified 01/18/21 08:10 Review of Systems Constitutional: Constitutional: Denies chills, Denies fever(s), Denies headache(s) and Denies weakness Eyes: Eyes: Denies blurry vision ENT: Denies headache(s) and Denies neck pain Cardiovascular: Cardiovascular: Denies chest pain, Reports rapid heart rate and Denies dyspnea Respiratory: Respiratory: Denies cough and Denies dyspnea Gastrointestinal: Gastrointestinal: Denies abdominal pain, Denies diarrhea, Denies nausea and Denies vomiting Genitourinary: Genitourinary: Denies hematuria, Reports urinary frequency and Denies dysuria Musculoskeletal: Musculoskeletal: Reports back pain and Denies neck pain Neurologic: Denies headache(s) and Denies weakness PMFSH Past Medical History Medical History BMI 23.0-23.9, adult Chronic headaches Engages in nicotine containing substance vaping Healthy adult Hx of migraine headaches Seasonal allergies Syncope due to orthostatic hypotension Vaginal delivery x 2 Wellness examination Social History Social History Smoking status: Current every day smoker Tobacco type: e-cigarettes/vaping Alcohol intake: never Substance use: never Gender identity (if verbalized by the patient): Female Exam Const: General: no acute distress and well developed Orientation/consciousness: oriented to person, oriented to place, oriented to time and patient oriented x3 HENMT: Head: normocephalic Ears: external ears normal General nose exam: Normal external nose present Eyes: General: appearance normal, both eyes and all related structures Conjunctivae: conjunctivae normal Neck: Neck: normal visual inspection and full ROM Chest: Chest palpation & inspection: normal inspection of the chest and no tenderness Resp: Effort & Inspection: normal respiratory effort Auscultation: clear to auscultation bilaterally Cardio: Rate: tachycardic Rhythm: regular rhythm GI: GI Palp: No abdominal tenderness and Yes Soft to palpation Skin: General skin exam: normal color and turgor normal Neuro: General: oriented to person, oriented to place, oriented to time and patient oriented x3 Cognition (Neuro): normal cognition Extrem: General: normal to inspection, full ROM and no pedal edema Psych: Appearance: grossly normal Mental Status: mental status grossly normal Affect: normal affect Course Vital Signs Vital signs: Vital Signs Temperature 36.5 C 01/18/21 08:06 Pulse Rate 112 H 01/18/21 08:06 Respiratory Rate 20 01/18/21 08:06 Blood Pressure 111/79 01/18/21 08:06 Pulse Oximetry 100 01/18/21 08:06 Temperature 36.5 C 01/18/21 08:06 Pulse Rate 92 01/18/21 10:15 Respiratory Rate 19 01/18/21 10:15 Blood Pressure 110/73 01/18/21 10:15 Pulse Oximetry 100 01/18/21 10:15 Medical Decision Making Vital Signs Vital Signs: Vital Signs Temperature 36.5 C 01/18/21 08:06 Pulse Rate 112 H 01/18/21 08:06 Respiratory Rate 20 01/18/21 08:06 Blood Pressure 111/79 01/18/21 08:06 Pulse Oximetry 100 01/18/21 08:06 Temperature 36.5 C 01/18/21 08:06 Pulse Rate 92 01/18/21 10:15 Respiratory Rate 19 01/18/21 10:15 Blood Pressure 110/73
--- NOTE | 2021-01-18 08:51 | PC.NURSE ---
Pt unable to void at present time. Ok to give water po.
--- NOTE | 2021-01-18 09:02 | PC.NURSE ---
Pt unable to void. Water given po.
[2021-01-18 09:12] LABS: Basophils Percent Auto 0.1 % (0.2-1.2); Eosinophils Absolute Auto 0.1 K/mm3 (0-0.3); Eosinophils Percent Auto 0.7 % (0-4.4); Hematocrit 35.9 % (37.0-47.0); Hemoglobin 12.5 g/dL (12.0-15.0); Immature Granulocyte Absolute 0.02 K/mm3 (0.00-0.031); Immature Granulocyte Percent A 0.2 % (0-0.5); Mean Corpuscular HGB Conc 34.8 g/dl (32-36); Mean Corpuscular Hemoglobin 31.6 pg (26-34); Mean Corpuscular Volume 90.9 fl (80-100); Mean Platelet Volume 9.4 fl (7.4-10.4); Monocytes Absolute Auto 0.3 K/mm3 (0.1-0.6); Monocytes Percent Auto 3.8 % (2.6-8.5); Neutrophils Percent Auto 81.2 % (45.5-73.1); Platelet Count Result 314 k/mm3 (150-375); Red Blood Count 3.95 M/mm3 (4.2-5.4); Red Cell Distribution Width 12.5 % (11.5-14.5); White Blood Count 8.6 K/mm3 (4.5-10.0)
[2021-01-18 09:14] LABS: Anion Gap 5 mmol/L (8-16); Blood Urea Nitrogen 11 mg/dL (7-17); Calcium 9.3 mg/dL (8.4-10.2); Carbon Dioxide 26 mmol/L (22-30); Chloride 106 mmol/L (98-107); Estimated CRCL calculation 92 ml/min; Estimated Glomerular Filt Rate > 60; Glucose 98 mg/dL (65-105); Potassium 3.9 mmol/L (3.4-5.0); Sodium 137 mmol/L (137-145)
[2021-01-18 09:30] LABS: Add Urine Microscopic? YES; Appearance Urine Cloudy (Clear); Bacteria Urine Trace /hpf; Bilirubin Urine Negative (Negative); Blood Urine 2+ (Negative); Color Urine Yellow (Yellow); Glucose Urine UA Negative (Negative); Ketones Urine Negative (Negative); Leukocyte Esterase Ur 1+ LEU/UL (Negative); Mucus Urine Few /lpf; Nitrate Urine Negative (Negative); Protein Urine 1+ mg/dL (Negative); Squamous Epithelial Cell Urine Many /hpf (Few); Urobilinogen Urine Negative mg/dL (<2.0); WBC Urine 16-20 /hpf
[2021-01-18 10:15] VITALS: BP 110/73; PULSE 92; RESP 19; O2SAT 100
== END 2021-01-18 10:55 | disposition home or self-care (01) ==
PROVIDERS: Emergency Provider Emergency Medicine; PCP Internal Medicine
DX: N39.0 Urinary tract infection, site not specified (principal); F17.290 Nicotine dependence, other tobacco product, uncomplicated; I45.10 Unspecified right bundle-branch block; R00.0 Tachycardia, unspecified; R94.31 Abnormal electrocardiogram [ECG] [EKG]
CPT/HCPCS: 36415; 80048; 81001; 81025; 85025; 87086; 87088; 93005; 99283

== ENCOUNTER 2021-01-19 07:07 | Emergency (ER) | payer OTHER, MEDICAID, SELFPAY ==
[2021-01-19 07:11] VITALS: BP 122/76; PULSE 108; RESP 18; TEMP 37.3; O2SAT 97
[2021-01-19] MEDS: MECLIZINE HCL 25 MG TABLET PO (07:44)
[2021-01-19] MEDS: SODIUM CHLORIDE 0.9% IV 1,000 ML 999 ML IV CONT (07:50)
--- NOTE | 2021-01-19 07:55 | ED.GENADULT ---
HPI - General Adult General Chief complaint: Urogenital-Female Stated complaint: UTI DOESN'T FEEL GOOD Time Seen by Provider: 01/19/21 07:10 History of Present Illness HPI narrative: Patient is a 30-year-old female who presents ER from multiple issues. Seen yesterday for UTI and prescribed Bactrim. She has taken 2 doses. She still feels some urgency and pressure when she urinates. However today she started having episodes of dizziness with anxiousness. She feels like there is some movement in her vision related to this. Unsure what provokes it. Reports she has been unable to sleep for couple of days. Has history of generalized anxiety disorder for which she is untreated. She feels like she is also having a recurrence of thrush in her mouth. She is unsure why she has had thrush previously. She has sore throat and dry mouth along with this. No fevers but did have an episode of chills earlier in the day. No focal weakness or numbness. Related Data Allergies Allergy/AdvReac Type Severity Reaction Status Date / Time Penicillins Allergy Unknown Other Verified 01/19/21 07:16 Review of Systems Review of Systems: All systems reviewed & are unremarkable except as noted in HPI and below Constitutional: Constitutional: Reports chills, Denies fever(s) and Denies weakness Eyes: Comments: Objects. Shaking in vision ENT: Reports dizziness, Denies nasal congestion and Reports sore throat Cardiovascular: Cardiovascular: Denies chest pain and Denies radiating jaw, neck or arm pain Gastrointestinal: Gastrointestinal: Denies abdominal pain, Denies diarrhea, Denies nausea and Denies vomiting Genitourinary: Genitourinary: Reports nocturia, Reports dysuria and Denies flank pain PMFSH Past Medical History Medical History BMI 23.0-23.9, adult Chronic headaches Engages in nicotine containing substance vaping Healthy adult Hx of migraine headaches Seasonal allergies Syncope due to orthostatic hypotension Vaginal delivery x 2 Wellness examination Social History Social History Smoking status: Current every day smoker Tobacco type: e-cigarettes/vaping Alcohol intake: never Substance use: never Gender identity (if verbalized by the patient): Female Exam Narrative: Exam Narrative: GENERAL: Well-appearing, well-nourished, and in no acute distress. HEAD: Normocephalic, atraumatic. EYES: PERRL and EOMI. ENT: Dry mucous membranes with the tongue with thick white mucus. Posterior oropharynx erythematous and raw appearing. No tonsillar hypertrophy or exudate. Uvula midline and nonedematous. CHEST: Clear to auscultation. No respiratory distress. HEART: Regular rate and rhythm. Normal peripheral pulses. ABDOMEN: Soft, nontender, nondistended. Back: No reproducible midline tenderness of thoracic or lumbar spine. No CVA tenderness. EXTREMITIES: Normal range of motion. No edema. NEURO: Alert and oriented x3. PSYCH: Normal mood and affect. Course Course Emergency Course: Mouth pathology not felt to be Cho-Kuldip syndrome but we will discontinue Bactrim as a precaution and start patient on Keflex. Patient also be given nystatin mouthwash. Patient feels improved with IV fluid. Patient's family member is here and is concerned that patient was shaky yesterday but patient displaying no tremors at this time. Vital Signs Vital signs: Vital Signs Temperature 99.1 F 01/19/21 07:11 Pulse Rate 108 H 01/19/21 07:11 Respiratory Rate 18 01/19/21 07:11 Blood Pressure 122/76 01/19/21 07:11 Pulse Oximetry 97 01/19/21 07:11 Temperature 99.1 F 01/19/21 07:11 Pulse Rate 83 01/19/21 08:21 Respiratory Rate 18 01/19/21 07:11 Blood Pressure 132/84 01/19/21 08:21 Pulse Oximetry 97 01/19/21 07:11 Medical Decision Making Vital Signs Vital Signs: Vital Signs Temperature 99.1 F 01/19/21 07:11 Pu
[2021-01-19 07:56] LABS: Basophils Percent Auto 0.2 % (0.2-1.2); Eosinophils Percent Auto 0.4 % (0-4.4); Hematocrit 40.1 % (37.0-47.0); Hemoglobin 13.5 g/dL (12.0-15.0); Immature Granulocyte Absolute 0.03 K/mm3 (0.00-0.031); Immature Granulocyte Percent A 0.4 % (0-0.5); Lymphocytes Percent Auto 13.4 % (18.3-44.2); Mean Corpuscular HGB Conc 33.7 g/dl (32-36); Mean Corpuscular Hemoglobin 31.5 pg (26-34); Mean Corpuscular Volume 93.7 fl (80-100); Mean Platelet Volume 9.4 fl (7.4-10.4); Monocytes Absolute Auto 0.3 K/mm3 (0.1-0.6); Monocytes Percent Auto 3.4 % (2.6-8.5); Neutrophils Absolute Auto 6.8 K/mm3 (1.3-6.7); Neutrophils Percent Auto 82.2 % (45.5-73.1); Platelet Count Result 342 k/mm3 (150-375); Red Blood Count 4.28 M/mm3 (4.2-5.4); Red Cell Distribution Width 12.6 % (11.5-14.5); White Blood Count 8.2 K/mm3 (4.5-10.0)
[2021-01-19 08:07] LABS: Anion Gap 8 mmol/L (8-16); Blood Urea Nitrogen 9 mg/dL (7-17); Calcium 9.9 mg/dL (8.4-10.2); Carbon Dioxide 27 mmol/L (22-30); Chloride 107 mmol/L (98-107); Estimated Glomerular Filt Rate > 60; Glucose 96 mg/dL (65-105); Potassium 3.9 mmol/L (3.4-5.0); Sodium 142 mmol/L (137-145)
[2021-01-19 08:20] VITALS: BP 120/71; PULSE 103
[2021-01-19 08:21] VITALS: BP 132/84; PULSE 83
[2021-01-19 08:48] LABS: HIV 1/2 Ab P24 Ag Result Negative (Negative)
== END 2021-01-19 10:05 | disposition home or self-care (01) ==
PROVIDERS: Emergency Provider Emergency Medicine; PCP Internal Medicine
DX: F41.9 Anxiety disorder, unspecified (principal); R42 Dizziness and giddiness; B37.0 Candidal stomatitis; N39.0 Urinary tract infection, site not specified; F17.290 Nicotine dependence, other tobacco product, uncomplicated
CPT/HCPCS: 36415; 80048; 85025; 86703; 96360; 99283; A9270; G0432; J7030

== ENCOUNTER 2021-07-10 16:28 | Emergency (ER) | payer OTHER, MEDICAID, SELFPAY ==
--- NOTE | ~2021-07-10 | XR_ITS ---
EXAMINATION: XR foot LT min 3V DATE: 07/10/2021 16:43 INDICATION: Left foot pain, initial encounter TECHNIQUE: Dorsoplantar, lateral, and 2 oblique views of the left foot were obtained. COMPARISON: None. FINDINGS: There is an acute, traumatic, small linear avulsion fracture at the medial base of the fift h middle phalanx. There is soft tissue swelling of the fifth toe. No additional fracture is identifie d. The bones and joint spaces are otherwise unremarkable. IMPRESSION: 1. Acute fracture at the medial base of the fifth middle phalanx. Reviewed, dictated and finalized at location A.
[2021-07-10 16:43] VITALS: BP 121/71; PULSE 106; RESP 16; TEMP 37; O2SAT 100
--- NOTE | 2021-07-10 16:44 | ED.LOWEXIN ---
HPI - Extremity Injury (Lower) General Chief Complaint: Extremity Injury, Lower Stated Complaint: INJURED L FOOT Time Seen by Provider: 07/10/21 16:45 Source: patient Mode of arrival: ambulatory Limitations: no limitations History of Present Illness HPI Narrative: Jonathan Johnson is a 30 yo female with a PMH of ADHD, anxiety, who comes [facility] with injury to left fifth toe after hitting it on the bottom of the bed last night about 3 AM. It appears to be angled but with minimum swelling, pain with movement. Related Data Home Medications Medication Instructions Recorded Confirmed levonorgestrel 20.1 mcg/24 hrs (6 1 device INTRAUTERINE ONCE 07/09/21 07/10/21 yrs) 52 mg intrauterine device bupropion HCl 150 mg PO DAILY 07/10/21 07/10/21 bupropion HCl 300 mg PO DAILY 07/10/21 07/10/21 cetirizine 10 mg PO DAILY 07/10/21 07/10/21 dextroamphetamine-amphetamine 20 mg PO DAILY 07/10/21 07/10/21 Allergies Allergy/AdvReac Type Severity Reaction Status Date / Time Penicillins Allergy Unknown Other Verified 07/10/21 16:44 Review of Systems Review of Systems: CONSTITUTIONAL: Denies fever, chills, sweats. EYES: Denies visual changes, redness, discharge. ENT: Denies rhinorrhea, congestion, sore throat, otalgia. CARDIOVASCULAR: Denies chest pain, palpitations, edema. RESPIRATORY: Denies dyspnea, wheezing, cough GASTROINTESTINAL: Denies abdominal pain, nausea, vomiting, diarrhea. GENITOURINARY: Denies dysuria, hematuria, abnormal discharge SKIN: Denies rash or itching. NEUROLOGIC: Denies numbness, or focal weakness. PSYCHIATRIC: Denies anxiety or depression. Fifth toe on left foot pain and appears angulated PMFSH Past Medical History Medical History BMI 23.0-23.9, adult Chronic headaches Engages in nicotine containing substance vaping Healthy adult Hx of migraine headaches Seasonal allergies Syncope due to orthostatic hypotension Vaginal delivery x 2 Wellness examination Social History Social History Smoking status: Current every day smoker Tobacco type: e-cigarettes/vaping Alcohol intake: never Substance use: never Gender identity (if verbalized by the patient): Female Comments At time of signature, I agree with nursing past medical, surgical, social and family history. There is no relevant family history pertinent to the presenting complaint. Exam Narrative: GENERAL: This is a well-nourished, well-developed patient, in mild distress. HEAD: normocephalic, atraumatic. EYES: Sclera clear/white. Vision is grossly intact. EARS: External ears normal, . Hearing grossly intact. NOSE: External nose normal without nasal discharge, nares without redness, no rhinorrhea. THROAT: Mucous membranes moist, NECK: Neck supple, non-tender CARDIOVASCULAR: Regular rate and rhythm without murmurs, gallops, or rubs. RESPIRATORY: Clear to auscultation. Breath sounds equal bilaterally. GASTROINTESTINAL: Abdomen soft, SKIN: warm, intact with no suspicious lesions or rash, good texture and turgor. NEURO: awake, alert, and oriented to person, place and time. There were no obvious focal neurologic abnormalities. Steady gait EXTREMITIES: Normal range of motion. 2+ pedal pulses bilaterally is able to flex foot on left and right but states that when she flexes foot it hurts her little toe the pain is located in the toe itself and not in the phalanges more proximal to ankle, there is pink, good cap refill BACK: Nontender without deformity Course Course Emergency Course: Comes to [facility] after hitting fifth left toe on end of bed last night x-ray shows acute fracture at the medial base of the fifth middle phalange Patient is visibly taped and placed in postop shoe Given tramadol for pain Follow-up with podiatry Vital Signs Vital signs: Vital Signs Temperature 98.6 F 07/10/21 16:43 Pulse Rate 106 H
== END 2021-07-10 17:05 | disposition home or self-care (01) ==
PROVIDERS: Emergency Provider Nurse Practitioner
DX: S92.522A Displaced fracture of middle phalanx of left lesser toe(s), initial encounter for closed fracture (principal); W22.8XXA Striking against or struck by other objects, initial encounter; F17.290 Nicotine dependence, other tobacco product, uncomplicated
CPT/HCPCS: 73630; 99214; G0463

== ENCOUNTER 2022-01-10 08:34 | Emergency (ER) | payer OTHER, MEDICAID, SELFPAY ==
--- NOTE | ~2022-01-10 | XR_ITS ---
EXAMINATION: XR chest 1V portable DATE: 01/10/2022 10:08 INDICATION: Cough and congestion. COVID positive. TECHNIQUE: frontal view of the chest was obtained. COMPARISON: Chest radiograph dated 11/21/2020 FINDINGS: The lungs remain clear with no focal airspace opacities, pulmonary edema, pleural effusion or pneumot horax. The cardiomediastinal silhouette is normal. Visualized bones and soft tissues are unremarkable . IMPRESSION: 1. Normal chest radiograph. Reviewed, dictated and finalized at location A. IMPRESSION: 1. Normal chest radiograph.
[2022-01-10 09:04] VITALS: BP 107/60; PULSE 91; RESP 17; TEMP 36.6; O2SAT 96
[2022-01-10 09:52] LABS: Influenza A QL RT-PCR Negative (Negative); Influenza B QL RT-PCR Negative (Negative); SARS-CoV-2 RNA PCR Positive
[2022-01-10 10:02] VITALS: BP 111/72; PULSE 100; RESP 15; O2SAT 95
--- NOTE | 2022-01-10 10:05 | ED.URI ---
HPI - URI/Sore Throat General Chief Complaint: Upper Respiratory Infection <Leticia Jc PA-C - Last Filed: 01/10/22 19:35> Stated Complaint: I don't feel good <BHUPENDRA Edwards Last Filed: 01/10/22 19:35> Time Seen by Provider: 01/10/22 08:58 <BHUPENDRA Edwards Last Filed: 01/10/22 19:35> Source: patient <BHUPENDRA Edwards Last Filed: 01/10/22 19:35> Mode of arrival: ambulatory <BHUPENDRA Edwards Last Filed: 01/10/22 19:35> Limitations: no limitations <BHUPENDRA Edwards Last Filed: 01/10/22 19:35> History of Present Illness HPI Narrative: Patient is a 31 y/o F who presents the ED with report cough and congestion. Patient reports she has not felt well for the past week with rhinorrhea, congestion, fatigue, sore throat, headache. Her symptoms seemed to worsen over the last week. Yesterday she developed a productive cough with green sputum and subjective fever at home. Cough became worse today prompting her presentation to the ED. No nausea, vomiting, chest pain, SOB, urinary sx's, abdominal pain. No family members with similar symptoms. Patient is not flu or COVID vaccinated. <BHUPENDRA Edwards Last Filed: 01/10/22 19:35> Related Data Home Medications: Home Medications Medication Instructions Recorded Confirmed bupropion HCl 150 mg PO DAILY 07/10/21 07/10/21 bupropion HCl 300 mg PO DAILY 07/10/21 07/10/21 cetirizine 10 mg PO DAILY 07/10/21 07/10/21 dextroamphetamine-amphetamine 20 mg PO DAILY 07/10/21 07/10/21 levonorgestrel 20 mcg/24 hours (7 1 insert INTRAUTERINE ONCE 08/25/21 yrs) 52 mg intrauterine device <BHUPENDRA Edwards Last Filed: 01/10/22 19:35> Allergies/Adverse Reactions: Allergies Allergy/AdvReac Type Severity Reaction Status Date / Time Penicillins Allergy Unknown Other Verified 01/10/22 09:08 <Leticia Jc PA-C - Last Filed: 01/10/22 19:35> Review of Systems Review of Systems: CONSTITUTIONAL: Reports subjective fever, chills, and sweats. ENT: Reports rhinorrhea, congestion, sore throat. CARDIOVASCULAR: Denies chest pain. RESPIRATORY: Reports productive cough. Denies dyspnea. GASTROINTESTINAL: Denies abdominal pain, nausea, vomiting, or diarrhea. GENITOURINARY: Denies dysuria or hematuria. MUSCULOSKELETAL: Denies back pain. NEUROLOGIC: Reports headache. Denies numbness, tingling, or weakness. <Leticia Jc PA-C - Last Filed: 01/10/22 19:35> All systems reviewed & are unremarkable except as noted in HPI and below <Leticia cJ PA-C - Last Filed: 01/10/22 19:35> PMFSH Past Medical History Medical History: Medical History (Updated 01/11/22 @ 00:00 by Uzma Acuna) BMI 23.0-23.9, adult Chronic headaches Engages in nicotine containing substance vaping Healthy adult Hx of migraine headaches Seasonal allergies Syncope due to orthostatic hypotension Vaginal delivery x 2 Wellness examination <Leticia Jc PA-C - Last Filed: 01/10/22 19:35> Surgical History Surgical History: Surgical History (Updated 01/10/22 @ 10:41 by Leticia Jc PA-C) No pertinent past surgical history <Leticia Jc PA-C - Last Filed: 01/10/22 19:35> Social History Social History: Social History Smoking status: Current every day smoker Tobacco type: e-cigarettes/vaping Alcohol intake: never Substance use: never Gender identity (if verbalized by the patient): Female <Leticia Jc PA-C - Last Filed: 01/10/22 19:35> Exam Narrative: GENERAL: Well appearing, well-nourished, non-toxic, in no acute distress. HEAD: Normocephalic, atraumatic. PHARYNX: Normal appearing, no exudate. NECK: Supple. No adenopathy, no masses. RESPIRATORY: Airway patent, respirations nonlabored. Clear to auscultation bilaterally, no rales, rhonchi, wheezing. CARDIOVASCULAR: Regular rate and rhythm without murmurs, rubs, or gallops. Radial
[2022-01-10 10:22] LABS: Basophils Percent Auto 0.2 % (0.2-1.2); Eosinophils Absolute Auto 0.1 K/mm3 (0-0.3); Eosinophils Percent Auto 0.5 % (0-4.4); Hematocrit 38.6 % (37.0-47.0); Hemoglobin 12.7 g/dL (12.0-15.0); Immature Granulocyte Absolute 0.07 K/mm3 (0.00-0.031); Immature Granulocyte Percent A 0.6 % (0-0.5); Lymphocytes Percent Auto 14.5 % (18.3-44.2); Mean Corpuscular HGB Conc 32.9 g/dl (32-36); Mean Corpuscular Hemoglobin 29.8 pg (26-34); Mean Corpuscular Volume 90.6 fl (80-100); Monocytes Absolute Auto 0.9 K/mm3 (0.1-0.6); Monocytes Percent Auto 6.8 % (2.6-8.5); Neutrophils Absolute Auto 9.6 K/mm3 (1.3-6.7); Neutrophils Percent Auto 77.4 % (45.5-73.1); Platelet Count Result 377 k/mm3 (150-375); Red Blood Count 4.26 M/mm3 (4.2-5.4); White Blood Count 12.5 K/mm3 (4.5-10.0)
[2022-01-10 10:27] LABS: Add Urine Microscopic? YES; Appearance Urine Cloudy (Clear); Bacteria Urine Trace /hpf; Bilirubin Urine Negative (Negative); Blood Urine Negative (Negative); Color Urine Amber (Yellow); Glucose Urine UA Negative (Negative); Ketones Urine Negative (Negative); Leukocyte Esterase Ur 2+ LEU/UL (Negative); Mucus Urine Heavy /lpf; Nitrate Urine Negative (Negative); Protein Urine 1+ mg/dL (Negative); Specific Grav Ur 1.025 (1.001-1.035); Squamous Epithelial Cell Urine Many /hpf (Few); Urobilinogen Urine Negative mg/dL (<2.0)
[2022-01-10 10:33] LABS: Alanine Aminotransferase 15 U/L (4-35); Albumin Level 4.2 g/dL (3.5-5.1); Alkaline Phosphatase 73 U/L (38-126); Anion Gap 9 mmol/L (8-16); Aspartate Amino Transferase 29 U/L (14-36); Bilirubin,Total 0.2 mg/dL (0.2-1.3); Blood Urea Nitrogen 11 mg/dL (7-17); Calcium 8.6 mg/dL (8.4-10.2); Carbon Dioxide 26 mmol/L (22-30); Chloride 104 mmol/L (98-107); Estimated CRCL calculation 104 ml/min; Estimated Glomerular Filt Rate > 60; Glucose 140 mg/dL (65-110); Potassium 3.6 mmol/L (3.4-5.0); Sodium 139 mmol/L (137-145)
== END 2022-01-10 11:19 | disposition home or self-care (01) ==
PROVIDERS: Physician Assistant; Emergency Provider Emergency Medicine
DX: U07.1 COVID-19 (principal); N30.01 Acute cystitis with hematuria; Z28.310 Unvaccinated for COVID-19; F17.290 Nicotine dependence, other tobacco product, uncomplicated
CPT/HCPCS: 36415; 71045; 80053; 81001; 85025; 87086; 87088; 87502; 99283; C9803; U0003; U0005

== ENCOUNTER 2022-12-06 16:12 | Emergency (ER) | payer BC, OTHER, SELFPAY ==
[2022-12-06 16:22] VITALS: BP 116/89; PULSE 131; RESP 16; TEMP 37.4; O2SAT 100
[2022-12-06 16:23] VITALS: BP 116/89; PULSE 131; RESP 16; TEMP 37.4; O2SAT 100
--- NOTE | 2022-12-06 16:39 | ED.URI ---
HPI - URI/Sore Throat General Chief Complaint: Upper Respiratory Infection Stated Complaint: SORE THROAT/EARACHE Time Seen by Provider: 12/06/22 16:39 Source: patient Mode of arrival: ambulatory Limitations: no limitations History of Present Illness HPI Narrative: 32-year-old female presents with complaint of sore throat, headache, fatigue, hot cold chills, body aches since yesterday. Patient's daughter currently has strep throat. Denies nausea vomiting diarrhea. No chest pain or shortness of breath. All systems reviewed and negative except as noted above. Related Data Home Medications Medication Instructions Recorded Confirmed levonorgestrel 21 mcg/24 hours (8 1 insert intrauterine ONCE 08/25/21 12/06/22 yrs) 52 mg intrauterine device (Mirena) alprazolam 0.5 mg tablet 0.5 mg PO DIRECTED 12/06/22 12/06/22 baclofen 10 mg tablet 10 mg PO DIRECTED 12/06/22 12/06/22 buprenorphine 8 mg-naloxone 2 mg 1 film buccal DIRECTED 12/06/22 12/06/22 sublingual film dextroamphetamine-amphetamine 20 20 mg PO DIRECTED 12/06/22 12/06/22 mg tablet ibuprofen 800 mg tablet 800 mg PO DIRECTED 12/06/22 12/06/22 sumatriptan succinate 50 mg tablet 50 mg PO DIRECTED 12/06/22 12/06/22 Allergies Allergy/AdvReac Type Severity Reaction Status Date / Time Penicillins Allergy Unknown Other Verified 12/06/22 16:21 Review of Systems Review of Systems: CONSTITUTIONAL: Reports fever, chills, or sweats. Reports fatigue. EYES: Denies visual changes, redness, or discharge. ENT: Denies rhinorrhea, congestion. Reports sore throat. Denies otalgia. CARDIOVASCULAR: Denies chest pain, palpitations, or edema. RESPIRATORY: Denies cough or dyspnea. GASTROINTESTINAL: Denies abdominal pain, nausea, vomiting, or diarrhea. GENITOURINARY: Denies dysuria or hematuria. SKIN: Denies rash or itching. MUSCULOSKELETAL: Denies back pain, joint pain. Reports myalgia. NEUROLOGIC: Denies headache, numbness, or weakness. PSYCHIATRIC: Denies anxiety or depression. All other systems reviewed are negative, except as documented in HPI. [facility] Past Medical History Medical History (Updated 12/06/22 @ 16:44 by Neena Rodriguez NP) BMI 23.0-23.9, adult Chronic headaches Engages in nicotine containing substance vaping Healthy adult Hx of migraine headaches Seasonal allergies Syncope due to orthostatic hypotension Vaginal delivery x 2 Wellness examination Surgical History Surgical History (Updated 01/10/22 @ 10:41 by Leticia Cedeno PA-C) No pertinent past surgical history Social History Social History Smoking status: Current every day smoker Tobacco type: e-cigarettes/vaping Alcohol intake: never Substance use: never Gender identity (if verbalized by the patient): Female Comments At time of signature, agree with nursing past medical, surgical, social and family history. There is no relevant family history pertinent to the presenting complaint. Exam Narrative: GENERAL: This is a well-nourished, well-developed patient. Patient ill-appearing but no distress. HEAD: normocephalic, atraumatic. EYES: PERRL. Sclera clear/white. Vision is grossly intact. EARS: External ears normal, auditory canals clear and without drainage, TMs normal without perforation. Hearing grossly intact. NOSE: External nose normal with no obvious nasal discharge, nares without redness, no rhinorrhea. THROAT: Mucous membranes moist, erythematous with swelling. Mild exudates. NECK: Neck supple, tender with anterior cervical lymphadenopathy. No masses or thyromegaly. CARDIOVASCULAR: Regular rate and rhythm without murmurs, gallops, or rubs. RESPIRATORY: Clear to auscultation. Breath sounds equal bilaterally. No wheezes, rales, or rhonchi. SKIN: warm, Dry, intact with no suspicious lesions or rash, good texture and turgor. NEURO: awake, alert, and oriented to person, place and time. There
== END 2022-12-06 16:47 | disposition home or self-care (01) ==
PROVIDERS: Emergency Provider Nurse Practitioner Family
DX: J02.0 Streptococcal pharyngitis (principal); F17.290 Nicotine dependence, other tobacco product, uncomplicated; Z79.1 Long term (current) use of non-steroidal anti-inflammatories (NSAID)
CPT/HCPCS: 87880; 99213; G0463

== ENCOUNTER 2023-02-06 16:11 | Emergency (ER) | payer BC, OTHER, SELFPAY ==
[2023-02-06 16:13] VITALS: BP 133/69; PULSE 112; RESP 19; TEMP 36.9; O2SAT 100
--- NOTE | 2023-02-06 17:11 | ED.GENADULT ---
HPI - General Adult General Chief complaint: Skin/Abscess/Foreign Body Stated complaint: allergic reaction? Time Seen by Provider: 02/06/23 16:56 Source: patient Mode of arrival: ambulatory Limitations: no limitations History of Present Illness HPI narrative: This is a 32-year-old female who presents to the ED with chief complaint of feeling like worms are crawling around. She states that the sensation is all throughout the body and worse in the legs and arms. She has associated feelings of dizziness. States she has had an episode of dizziness like this in the past with her anxiety. She states that she has an anxiety disorder and takes alprazolam as needed. She states she has not taken any today. Patient states that she has been feeling very stressed out lately with her aunt passing 2 days ago. She reports she was at home and drinking Eber-Aid when this sensation began today. She states she is specifically worried for worms or bugs crawling around under her skin. Denies any known bug bites. Denies any new exposures. Denies any new medications. Denies any headache, LOC, seizure, weakness, fevers, chills, chest pain, shortness of breath, abdominal pain, urinary symptoms. Related Data Home Medications Medication Instructions Recorded Confirmed levonorgestrel 21 mcg/24 hours (8 1 insert intrauterine ONCE 08/25/21 12/06/22 yrs) 52 mg intrauterine device (Mirena) alprazolam 0.5 mg tablet 0.5 mg PO DIRECTED 12/06/22 12/06/22 baclofen 10 mg tablet 10 mg PO DIRECTED 12/06/22 12/06/22 buprenorphine 8 mg-naloxone 2 mg 1 film buccal DIRECTED 12/06/22 12/06/22 sublingual film dextroamphetamine-amphetamine 20 20 mg PO DIRECTED 12/06/22 12/06/22 mg tablet ibuprofen 800 mg tablet 800 mg PO DIRECTED 12/06/22 12/06/22 sumatriptan succinate 50 mg tablet 50 mg PO DIRECTED 12/06/22 12/06/22 Allergies Allergy/AdvReac Type Severity Reaction Status Date / Time Penicillins Allergy Unknown Other Verified 02/06/23 16:11 Review of Systems Review of Systems: CONSTITUTIONAL: Denies fever, chills, or sweats. EYES: Denies visual changes, redness, or discharge. ENT: Denies rhinorrhea, congestion, sore throat, or otalgia. CARDIOVASCULAR: Denies chest pain, palpitations, or edema. RESPIRATORY: Denies cough or dyspnea. GASTROINTESTINAL: Denies abdominal pain, nausea, vomiting, or diarrhea. GENITOURINARY: Denies dysuria or hematuria. SKIN: Denies rash or itching. MUSCULOSKELETAL: Denies back pain, joint pain, or myalgia. NEUROLOGIC: See HPI PSYCHIATRIC: See HPI [facility] Past Medical History Medical History (Updated 02/06/23 @ 17:46 by Wilmer Guy PA-C) BMI 23.0-23.9, adult Chronic headaches Engages in nicotine containing substance vaping Healthy adult Hx of migraine headaches Seasonal allergies Syncope due to orthostatic hypotension Vaginal delivery x 2 Wellness examination Surgical History Surgical History (Updated 01/10/22 @ 10:41 by Leticia Cedeno PA-C) No pertinent past surgical history Social History Social History Smoking status: Current every day smoker Tobacco type: e-cigarettes/vaping Alcohol intake: never Substance use: never Gender identity (if verbalized by the patient): Female Exam Narrative: GENERAL: Well-appearing, well-nourished, and in no acute distress. HEAD: Normocephalic, atraumatic. EYES: PERRLA and EOMI. ENT: Nares clear, no rhinorrhea or epistaxis. Mucous membranes moist. Oropharynx without tonsillar hypertrophy exudate or other lesions. NECK: Supple. No adenopathy or masses. CHEST: No respiratory distress. Clear to auscultation. No wheezes rales or rhonchi HEART: Tachycardic to 112. Regular.. No murmur heard. Normal peripheral pulses. ABDOMEN: Soft, nontender, nondistended, normal active bowel sounds. MSK: Normal range of motion. No edema. SKIN: Warm, dry, no rash. No lesions througho
[2023-02-06] MEDS: MECLIZINE HCL 25 MG TABLET PO (17:18)
[2023-02-06] MEDS: LORazepam (*CRX) 0.5 MG TABLET PO (17:18)
== END 2023-02-06 17:55 | disposition home or self-care (01) ==
PROVIDERS: Emergency Provider Physician Assistant; PCP Nurse Practitioner
DX: F41.9 Anxiety disorder, unspecified (principal); F17.290 Nicotine dependence, other tobacco product, uncomplicated
CPT/HCPCS: 99283; A9270